=== PATIENT | female | born 1965 | race Caucasian/White ===

== ENCOUNTER 2021-03-06 09:16 | Emergency (ER) | payer OTHER ==
[2021-03-06 11:19] VITALS: BP 142/101
--- NOTE | 2021-03-06 11:31 | ED Physician Documentation ---
History of Present Illness - Stated complaint Stated Complaint: saggy left side of face - Chief complaint Chief Complaint: Neuro - History obtained from History obtained from: Patient - Additonal information Additional information: 35-year-old woman, previously healthy presents with facial droop since Saturday. She noticed that her entire left side of her face was drooping today and it was difficult to close her eyes or raise her eyebrows. This has been progressively worsening since Saturday although she initially thought it was her right face. She does endorse recent upper respiratory infection with a recurrent sinusitis status post 3 courses of antibiotics. Otherwise asymptomatic. No other focal neurological deficits. Denies known Lyme exposure or herpes exposure.denies fevers Review of Systems Ten Systems: 10 systems reviewed and negative Constitutional: denies: Fever Nose: reports: Rhinorrhea / runny nose, Congestion Neurologic: reports: Other (L upper and lower facial droop) PD PAST MEDICAL HISTORY - Present Medications Home Medications: Ambulatory Orders Medication Instructions Recorded Confirmed Mineral Oil/Petrolatum,White 3.5 gm OP QPM 30 Days #1 bottle 03/06/21 [Lubricant Pm Eye Ointment] predniSONE [Prednisone 21-TAB dose 10 mg PO QDAC #21 tab 03/06/21 pack] - Allergies Allergies/Adverse Reactions: Allergies Allergy/AdvReac Type Severity Reaction Status Date / Time No Known Drug Allergies Allergy Verified 03/06/21 09:21 PD ED PE NORMAL - Vitals Vital signs reviewed: Yes - General General: Alert and oriented X 3, No acute distress, Well developed/nourished - HEENT HEENT: Atraumatic, PERRL, EOMI - Neck Neck: Supple, no meningeal sign - Cardiac Cardiac: RRR - Respiratory Respiratory: No respiratory distress, Clear bilaterally - Abdomen Abdomen: Non tender, Non distended - Female Female : Deferred - Rectal Rectal: Deferred - Derm Derm: Normal color, Warm and dry - Extremities Extremities: No deformity - Neuro Neuro: Alert and oriented X 3, collar pointer 2-12 intact (cn 2-12 intact with exception of mild L upper and lower facial droop), No motor deficit, No sensory deficit, Normal speech - Psych Psych: Normal mood, Normal affect Results - Vitals Vitals: Vital Signs - 24 hr 03/06/21 03/06/21 09:22 11:19 Temperature 36.2 C L Heart Rate 74 71 Respiratory 18 15 Rate Blood Pressure 165/90 H 142/101 H O2 Saturation 99 98 Oxygen O2 Source Room air - Labs Labs: Laboratory Tests 03/06/21 09:44 POC Whole Bld Glucose 134 H PD MEDICAL DECISION MAKING - ED course Complexity details: d/w patient ED course: 55-year-old woman presents with a mild case of Hurd's palsy. Upper and lower L face mild weakness. No other neuro deficits to suggest central etiology. Steroid course will be given and strict return precautions given. Patient will follow up with her primary doctor. Departure - Departure Disposition: 01 Home, Self Care Clinical Impression: Hurd's palsy Condition: Good Instructions: ED Pilger Palsy Prescriptions: Mineral Oil/Petrolatum,White [Lubricant Pm Eye Ointment] 3.5 gm OP QPM 30 Days #1 bottle predniSONE [Prednisone 21-TAB dose pack] 10 mg PO QDAC #21 tab Comments: You were seen in the emergency department for Hurd's palsy. Take these steroids as prescribed and make sure that you close your eyes at night and use lubricating ointment to prevent corneal injury. Please follow-up with your doctor in 1 week. Worsening face facial weakness beyond 3 weeks of initial symptoms is not normal. This should prompt reevaluation for other causes. Make sure that you follow-up with your doctor if this is the case. Return to the ED for any new or worsening symptoms or other concerns. Discharge Date/Time: 03/06/21 11:43
== END 2021-03-06 11:43 | disposition home or self-care (01) ==
LOC: ED 09:16
DX: G51.0 Bell's palsy (principal)
CPT/HCPCS: 99282; 99284

== ENCOUNTER 2023-05-03 21:12 | Emergency (ER) | payer OTHER ==
[2023-05-03] MEDS ORDERED: SODIUM CHLORIDE 0.9% 1,000 ML IV STA (21:43)
[2023-05-03 21:52] LABS: BASOPHILS # (AUTO) 0.1 10^3/uL (0.0-0.1); BASOPHILS % (AUTO) 0.8 %; EOSINOPHILS # (AUTO) 0.2 10^3/uL (0.0-0.7); EOSINOPHILS % (AUTO) 1.7 %; HCT - HEMATOCRIT 46.6 % (37.0-47.0); HGB - HEMOGLOBIN 15.4 g/dL (12.0-16.0); LYMPHOCYTES # (AUTO) 1.8 10^3/uL (1.5-3.5); LYMPHOCYTES % (AUTO) 18.8 %; MEAN CORPUSCULAR HEMOGLOBIN 29.2 pg (27.0-31.0); MEAN CORPUSCULAR VOLUME 88.3 fL (81.0-99.0); MEAN PLATELET VOLUME 9.6 fL (7.9-10.8); MONOCYTES # (AUTO) 0.6 10^3/uL (0.0-1.0); MONOCYTES % (AUTO) 5.8 %; NEUTROPHILS # (AUTO) 6.9 10^3/uL (1.5-6.6); NEUTROPHILS % (AUTO) 72.6 %; PLT - PLATELET COUNT 192 10^3/uL (130-450); RED BLOOD COUNT 5.28 10^6/uL (4.20-5.40); RED CELL DISTRIBUTION WIDTH 13.6 % (12.0-15.0); WHITE BLOOD COUNT 9.5 x10^3/uL (4.8-10.8)
--- NOTE | 2023-05-03 21:56 | ED Physician Documentation ---
History of Present Illness - Stated complaint Stated Complaint: DIZZINESS - Chief complaint Chief Complaint: Neuro - History obtained from History obtained from: Patient - History of Present Illness Timing: Today Pain level max: 2 Pain level now: 0 - Additonal information Additional information: Patient is a 57-year-old female who presents to the emergency department stating that she has had recurrent vertigo over the past 8 months. She is seeing ENT for this. Today she had another episode of vertigo with the room spinning, nausea and vomiting. She states that she felt mildly short of breath prior to coming into the emergency department, is currently feeling better. She had mild chest discomfort, 1-2 out of 10 after vomiting.She states that the vertigo has mostly resolved at this point. Has mild residual nausea. She states that shortness of breath is mostly resolved as well. No recent surgery. No recent travel. chest pain is mainly in the upper chest, more on the right side, described as dull and aching. No recent illnesses. No trauma. No headache. No seizure activity. No focal neurological deficits. No neck or back pain. Denies any possibility of . Review of Systems Constitutional: denies: Fever, Chills Nose: denies: Rhinorrhea / runny nose, Congestion Throat: denies: Sore throat Cardiac: denies: Chest pain / pressure, Palpitations Respiratory: denies: Dyspnea, Cough GI: denies: Abdominal Pain, Diarrhea Skin: denies: Rash Musculoskeletal: denies: Neck pain, Back pain Neurologic: denies: Focal weakness, Numbness, Seizure, Headache PD PAST MEDICAL HISTORY - Past Medical History Past Medical History: Yes Endocrine/Autoimmune: HyPOthyroidism - Present Medications Home Medications: Ambulatory Orders Medication Instructions Recorded Confirmed Mineral Oil/Petrolatum,White 3.5 gm OP QPM 30 Days #1 bottle 03/06/21 [Lubricant Pm Eye Ointment] predniSONE [Prednisone 21-TAB dose 10 mg PO QDAC #21 tab 03/06/21 pack] - Allergies Allergies/Adverse Reactions: Allergies Allergy/AdvReac Type Severity Reaction Status Date / Time No Known Drug Allergies Allergy Verified 03/06/21 09:21 - Living Situation Living Situation: reports: With family Living Arrangement: reports: At home - Social History Does the pt have substance abuse?: No - Family History Family history: reports: Non contributory PD ED PE NORMAL - Vitals Vital signs reviewed: Yes - General General: Alert and oriented X 3, No acute distress, Well developed/nourished - HEENT HEENT: Atraumatic, PERRL, Ears normal, Moist mucous membranes - Neck Neck: Supple, no meningeal sign - Cardiac Cardiac: RRR, Strong equal pulses - Respiratory Respiratory: No respiratory distress, Clear bilaterally - Abdomen Abdomen: Soft, Non tender, Non distended - Derm Derm: Warm and dry, No rash - Extremities Extremities: No edema, No calf tenderness / cord - Neuro Neuro: Alert and oriented X 3, blueprint clerk 2-12 intact, No motor deficit, No sensory deficit, Normal speech, Other (No nystagmus. Normal cerebellar testing) Eye Opening: Spontaneous Motor: Obeys Commands Verbal: Oriented GCS Score: 15 - Psych Psych: Normal mood, Normal affect Results - Vitals Vitals: Vital Signs - 24 hr 05/03/23 05/03/23 21:25 23:51 Temperature 36.5 C Heart Rate 60 66 Respiratory 16 15 Rate Blood Pressure 164/98 H 153/89 H O2 Saturation 100 100 Oxygen O2 Source Room air - EKG (time done) 2208 EKG releavant findings:: EKG personally interpreted by author of this note. Relevant findings are: Rate: Rate (enter#) (64) Rhythm: NSR Allen: Normal Intervals: 1st degree AVB QRS: Normal Ischemia: Normal ST segments - Labs Labs: Laboratory Tests 05/03/23 05/03/23 05/03/23 21:47 21:47 21:47 WBC 9.5 RBC 5.28 Hgb 15.4 Hct 46.6 MCV 88.3 MCH 29.2 MCHC 33.0 RDW 13.6 Plt Count 192 MPV 9.6 Neut # (Auto) 6.9 H Lymph # (Auto) 1.8 Hyde # (Auto) 0.6 Eos # (Auto) 0.2 Baso # (Auto) 0.1 Absolute Nucleated RBC 0.00 Nucleated RBC % 0.0 Sodium 139 Potassium 4.1 Chloride 103 Carbon Dioxide 27 Anion Gap 9.0 BUN 18 Creatinine 0.9 Estimated GFR (MDRD) 64 L Glucose 112 H Calcium 9.1 Total Bilirubin 0.8 AST 24 ALT 27 Alkaline Phosphatase 45 Troponin I High Sens 3.7 Total Protein 7.3 Albumin 4.1 Globulin 3.2 Albumin/Globulin Ratio 1.3 Lipase 66 H - Rads (name of study) cxr Relevant Findings:: Final report received, See rad report PD Medical Decision Making - ED course Complexity details: reviewed results, re-evaluated patient, considered differential, d/w patient, d/w family ED course: Patient is very well-appearing, nontoxic. Afebrile. Tolerating p.o. without difficulty here. No acute findings on laboratory testing, EKG or chest x-ray. No signs of stroke. NIH stroke scale 0. Cerebellar test normal. Patient is asymptomatic on repeat evaluation. We will have her follow-up with her doctor for further care. Feels similar to prior episodes of BPPV. Patient counseled regarding signs and symptoms for which I believe and urgent re-evaluation would be necessary. Patient with good understanding of and agreement to plan and is comfortable going home at this time This document was made in part using voice recognition software. While efforts are made to proofread this document, sound alike and grammatical errors may occur. Departure - Departure Disposition: 01 Home, Self Care Clinical Impression: Vertigo Condition: Good Instructions: ED Vertigo Unspecified Follow-Up: VERONIQUE SOTELO PA-C [Primary Care Provider] - Within 1 week Comments: Please follow-up with your doctor for further care. Please follow-up with your ENT for your vertigo. Please return if you worsen. Your testing tonight does not show any acute abnormalities. Discharge Date/Time: 05/03/23 23:51
--- NOTE | 2023-05-03 22:03 | XRAY Report ---
PROCEDURE: Chest 1 View X-Ray INDICATIONS: Chest Pain TECHNIQUE: One view of the chest was acquired. COMPARISON: None. FINDINGS: Surgical changes and devices: None. Lungs and pleura: No pleural effusions or pneumothorax. Lungs are clear. Mediastinum: Mediastinal contours appear normal. Heart size is normal. Bones and chest wall: No suspicious bony lesions. Overlying soft tissues appear unremarkable. IMPRESSION: No acute cardiopulmonary process. Reviewed by: Fredy Wolf MD on 05/03/2023 10:01 PM PDT Approved by: Fredy Wolf MD on 05/03/2023 10:01 PM PDT Station ID: [id number]
[2023-05-03 22:12] LABS: ALBUMIN 4.1 g/dL (3.2-5.5); ALBUMIN/GLOBULIN RATIO 1.3 (1.0-2.2); BILIRUBIN,TOTAL 0.8 mg/dL (0.2-1.0); CALCIUM 9.1 mg/dL (8.5-10.3); CREATININE 0.9 mg/dL (0.4-1.0); POTASSIUM 4.1 mmol/L (3.5-5.0); TOTAL PROTEIN 7.3 g/dL (6.7-8.2)
[2023-05-03 23:53] VITALS: BP 153/89
== END 2023-05-03 23:51 | disposition home or self-care (01) ==
LOC: ED 21:12
DX: R42 Dizziness and giddiness (principal)
CPT/HCPCS: 36415; 80053; 83690; 84484; 85025; 93005; 99283; 99284